=== PATIENT | female | born 1970 | race African-American/Black ===

== ENCOUNTER 2017-02-12 16:42 | Emergency (ER) | payer OTHER ==
[~2017-02-12] VITALS: Ht 162.6 cm; Wt 75.0 kg
[~2017-02-12 16:42] MED LIST: BRIM5DRO6 OP; HYDR-4005 PO; HYDR25TA PO; TIMO15DR12 EACHEYE; VERA120C3 PO
[2017-02-12] MEDS ORDERED: IBUPROFEN 600MG TABLET PO ONE (17:15)
[2017-02-12 17:26] VITALS: BP 122/83
== END 2017-02-12 18:12 | disposition home or self-care (01) ==
LOC: ER 17:16
DX: T22.112A Burn of first degree of left forearm, initial encounter (principal); F17.200 Nicotine dependence, unspecified, uncomplicated; F12.10 Cannabis abuse, uncomplicated; I10 Essential (primary) hypertension; Z98.51 Tubal ligation status; Z91.018 Allergy to other foods; X19.XXXA Contact with other heat and hot substances, initial encounter; Y93.G3 Activity, cooking and baking; Y92.89 Other specified places as the place of occurrence of the external cause; Y99.8 Other external cause status
CPT/HCPCS: 99282

== ENCOUNTER 2019-03-31 17:19 | Emergency (ER) | payer MEDICAID, OTHER ==
[~2019-03-31] VITALS: Ht 162.6 cm; Wt 77.0 kg
[2019-03-31 17:25] VITALS: BP 134/77
== END 2019-03-31 22:04 | disposition left against medical advice (07) ==
LOC: ER 17:19
DX: R51 Headache (principal); R11.0 Nausea; Z53.21 Procedure and treatment not carried out due to patient leaving prior to being seen by health care provider